=== PATIENT | male | born 1940 | race Caucasian/White ===

== ENCOUNTER 2018-09-23 15:17 | Inpatient (IN) ==
[2018-09-23 16:01] LABS: BASO# 0.06 X1000 (0.0-0.2); BASO% 0.8 % (0.0-0.8); HEMATOCRIT 39.8 % (42.0-52.0); HEMOGLOBIN 13.3 g/dL (14.0-18.0); IMM GRAN# 0.06 X1000 (0.0-0.04); IMM GRAN% 0.8 % (0.0-0.5); LYMPH# 2.17 X1000 (1.2-3.4); LYMPH% 27.2 % (20.5-51.1); MCH 31.1 PG (27-31); MCHC 33.4 g/dL (33-37); MONO# 0.68 X1000 (0.11-0.59); MONO% 8.5 % (1.7-9.3); NEUT# 4.61 X1000 (1.4-6.5); NEUT% 57.7 % (42.2-75.2); RBC 4.28 XMIL (4.7-6.1); RDW 13.2 % (11.5-14.5); WBC 7.98 X1000 (4.8-10.8)
[2018-09-23 16:03] LABS: PLT < 6 X1000 (130-400)
[2018-09-23 16:11] LABS: INR 0.94; PROTIME 13.3 Seconds (11.0-16.0)
[2018-09-23 16:14] LABS: URINE SOURCE CLEAN CATCH
[2018-09-23 16:15] LABS: EOS 4 % (1-10); LYMPHS 33 % (21-51); MONO 3 % (1-9); SEGS 60 % (42-75)
[2018-09-23 16:17] LABS: AGAP 11; ALB/GLOB RATIO 1.2; ALBUMIN 3.9 g/dL (3.5-5.0); ALKALINE PHOSPHATASE 111 U/L (32-122); BUN 22 mg/dL (8-22); CALCIUM 8.4 mg/dL (8.8-10.2); CHLORIDE 101 mmol/L (98-107); COSMO 286; ESTIMATED GFR > 60; GLUCOSE 162 mg/dL (70-104); GOT 25 U/L (10-34); GPT 15 U/L (10-44); POTASSIUM 3.9 mmol/L (3.5-5.1); SODIUM 140 mmol/L (136-145); TCO2 28 mmol/L (25-35); TOTAL BILIRUBIN 1.08 mg/dL (0.20-1.00); TOTAL PROTEIN 7.1 g/dL (6.3-8.3)
[2018-09-23 16:22] LABS: UR EPITHELIAL CELLS <10 /HPF (<10); URINE BACTERIA NEGATIVE /HPF; URINE WBC <10 /HPF (<10)
[2018-09-23 16:23] LABS: BILIRUBIN URINE NEGATIVE (NEGATIVE); BLOOD URINE MODERATE (NEGATIVE); COLOR YELLOW; GLUCOSE URINE NEGATIVE (NEGATIVE); KETONE URINE NEGATIVE (NEGATIVE); LEUKOCYTES URINE NEGATIVE (NEGATIVE); NITRITE URINE NEGATIVE (NEGATIVE); PROTEIN URINE NEGATIVE (NEGATIVE); TURBIDITY URINE CLEAR (CLEAR); UROBILINOGEN URINE NORMAL (NORMAL)
--- NOTE | 2018-09-23 16:25 | EKG Report ---
Test Performed on : 09/23/2018 4:20:24 PM Test Reason : dyspnea Blood Pressure : / mmHG Vent. Rate : 072 BPM Atrial Rate : 072 BPM P-R Int : 328 ms QRS Dur : 150 ms QT Int : 466 ms P-R-T Axes : 253 007 234 degrees QTc Int : 510 ms Unusual P axis, possible ectopic atrial rhythm. Right bundle branch block Inferior infarct , age undetermined T wave abnormality, consider lateral ischemia Abnormal ECG When compared with ECG of 18-JAN-2016 09:18, Ectopic atrial rhythm. has replaced Wide QRS rhythm. Unconfirmed Result
--- NOTE | 2018-09-23 16:46 | PROVIDER DOCUMENTATION ---
This chart was entered by Afsaneh Morales Scribe, acting as scribe for Sugar Mosquera MD. HPI-Abdominal Pain/GI Problem - General Chief Complaint: Abnormal Lab[s] Stated Complaint: NUNU REF Time Seen by Provider: 09/23/18 15:32 Source: patient Allergies/Adverse Reactions: Patient Allergies Allergy/AdvReac Type Severity Reaction Status Date / Time No Known Allergies Allergy Verified 01/18/16 09:08 Home Medications: Home Medication List Medication Instructions Recorded Confirmed Last Taken Type Aspirin [Aspirin EC] 81 mg PO DAILY 02/17/14 05/25/16 05/25/16 History 0800 Digoxin [Digox] 125 mcg PO DAILY 02/17/14 05/25/16 05/25/16 History 0800 Isosorbide Mononitrate E.r. [Imdur] 30 mg PO DAILY #0 tablet 02/17/14 05/25/16 Unknown Rx Simvastatin 40 mg PO QHS 02/17/14 05/25/16 02/16/14 21:00 History Sotalol HCl [Betapace] 160 mg PO BID 02/17/14 05/25/16 05/25/16 History 0800 Meclizine HCl [Antivert] 12.5 mg PO TID PRN PRN #30 tablet 01/18/16 05/25/16 Unknown Rx Furosemide [Lasix] 40 mg PO DAILY 05/25/16 05/25/16 05/25/16 08:00 History Hydrocodone/APAP 5 mg/325 mg 1 tab PO Q6H PRN PRN #12 tablet 05/25/16 Unknown Rx [[place]-5] Insulin Aspart Prot/Insuln Asp 110 units SQ AC + HS 05/25/16 05/25/16 05/25/16 History [Novolog Mix 70-30 Vial] 0800 Insulin Regular, Human [Humulin R 05/25/16 Unknown History U-500] - History of Present Illness-ABD Nature of Presenting Problems: Patient is 78 year old male who presents to the ED with bleeding gums, nose bleeds and dark stools. Patient states symptoms started last week. Patient states seeing PCP 5 days ago and was informed his platelets were 5000. Patient states was seen again by PCP yesterday. Patient does not report taking a blood thinner. Patient denies pain and fever. Abdominal Pain Onset Location: reports: other (no abdominal pain) Pain Radiation: reports: no radiation Quality of Pain: reports: none Severity in ED: reports: mild Onset/Duration: reports: last week Timing: reports: still present Activities at Onset: reports: light activity Modifying Factors: improves with: nothing Associated Symptoms: reports: EENT symptoms (nose bleed and bleeding gums), other (GI bleed) Last BM: unsure Dark Stools Present?: reports: black Rectal Pain: reports: none Emesis Description: reports: none Bruising or Bleeding Gums?: Yes Similar Symptoms Previously?: Yes Recently seen or treated by another doctor?: Yes Review of Systems - Adult - REVIEW OF SYSTEMS - ADULT Constitutional: reports: no symptoms reported Eyes: reports: no symptoms reported Ears, Nose, Mouth & Throat: reports: epistaxis, other (bleeding gums). denies: ear pain, throat pain Cardiovascular: reports: no symptoms reported Respiratory: reports: no symptoms reported Gastrointestinal: reports: other (black stools). denies: abdominal pain, diarrhea, nausea, vomiting Genitourinary: reports: no symptoms reported Musculoskeletal: reports: no symptoms reported Integumentary: reports: no symptoms reported Neurological: reports: no symptoms reported Psychiatric: reports: no symptoms reported Endocrine: reports: no symptoms reported Hematologic/Lymphatic: reports: no symptoms reported Allergic/Immunologic: reports: no symptoms reported All Other Systems: Reviewed and Negative Past History - Adult - PAST MEDICAL HISTORY-ADULT Review of Records: reports: Nursing Assessment Review, Medications Reviewed, Social history reviewed & non-contributory. Major Childhood Illnesses: reports: denies history Cardiovascular: reports: CHF, HTN, hyperlipidemia, other (cardiomegally) Respiratory: reports: denies history Gastrointestinal: reports: denies history Obstetrical/Gynecological: reports: denies history Genitourinary: reports: dialysis Musculoskeletal: reports: denies history Neurological: reports: denies history Endocrine/Immune: reports: Diabetes Other Conditions: reports: denies history - PRIOR SURGERIES/PROCEDURES Surgical/Procedure History: reports: appendectomy, CABG, back/neck (neck), other (open heart surgery 2002) - IMMUNIZATION STATUS Childhood Immunizations: See Nurse Assessment Flu Vaccine: See Nurse Assessment - FAMILY HISTORY Family History: reviewed, not pertinent - SOCIAL HISTORY Smoking: cigarettes (former) Substance Use: denies Physical Exam-General - PHYSICAL EXAM-ADULT Initial Vital Signs Reviewed: Yes - CONSTITUTIONAL General Appearance: appears well, alert, no apparent distress - EYES Eyes: pink conjunctivae - HEAD, EARS, NOSE, MOUTH & THROAT HENMT: moist mucous membranes, other (dried blood both nares, dried blood at inner lips) - NECK Neck: non-tender, supple - RESPIRATORY Respiratory: lungs clear, normal breath sounds, no pleuratic chest pain, no respiratory distress - CARDIOVASCULAR Cardiovascular: normal peripheral pulses, regular rate, rhythm - GASTROINTESTINAL (ABDOMEN) Abdominal Exam: non tender, soft - LYMPHATIC Lymphatic: no adenopathy - MUSCULOSKELETAL Extremity: normal range of motion, non-tender Peripheral Pulses: radial (R): 2+, radial (L): 2+ - SKIN Integumentary: normal turgor, warm/dry, other (distal BLE evidence of aged blood - 'broken capillary', sites of insulin injection profound bruising and evidence of bleeding) - NEUROLOGIC Neurologic: grossly normal, no motor/sensory deficits - PSYCHIATRIC Psych/Mental Status: normal mood/affect, normal thought content, normal thought process, oriented x 3 Progress - PLAN OF CARE/RESULTS Progress/Plan/Lab Results: Vital Signs - 8 hr 09/23/18 15:31 Temperature 98.4 F Pulse Rate 71 Respiratory Rate 18 Blood Pressure 142/63 O2 Sat by Pulse Oximetry 95 Laboratory Results - last 24 hr 09/23/18 15:30 WBC 7.98 RBC 4.28 L Hgb 13.3 L Hct 39.8 L MCV 93.0 MCH 31.1 H MCHC 33.4 RDW Std Deviation 13.2 Plt Count < 6 L* MPV Not Reportable Immature Gran % (Auto) 0.8 H Neut % (Auto) 57.7 Lymph % (Auto) 27.2 [place] % (Auto) 8.5 Eos % (Auto) 5.0 Baso % (Auto) 0.8 Immature Gran # (Auto) 0.06 H Neut # (Auto) 4.61 Lymph # (Auto) 2.17 [place] # (Auto) 0.68 H Eos # (Auto) 0.40 Baso # (Auto) 0.06 Orders Category Date Time Status Saline Loc NOW Care 09/23/18 15:57 Active CBC WITH ELECTRONIC DIFF [HEME] Stat Lab 09/23/18 15:30 Results COMPREHENSIVE METABOLIC PANEL [CHEM] Stat Lab 09/23/18 15:30 Received PROTIME WITH INR [COAG] Stat Lab 09/23/18 15:30 Received PTT [COAG] Stat Lab 09/23/18 15:30 Received TYPE & SCREEN [BBK] Stat Lab 09/23/18 15:30 Received URINALYSIS [URINALYSIS] Stat Lab 09/23/18 15:37 Uncollected Generalized Adult Illness >60 Stat Oth 09/23/18 15:36 Ordered EKG [EKG] Stat Ther 09/23/18 15:57 Ordered d/w Ross[facility] 1403 HPI PCP sent over labs from yesterday exam admission, to [facility] Result Diagrams: 09/23/18 15:30 09/23/18 15:30 Departure - Departure Date of Disposition Decision: 09/23/18 Time of Disposition Decision: 16:04 DIAGNOSIS: Thrombocytopenia Disposition: ADMITTED INPATIENT 09 Certified Medical Emergency: Emergent Condition: Good Referrals and Follow-Ups: Robert Cain MD [Primary Care Provider] - - Critical Care Note This patient required my direct & personal management of CC.: No Attestation - Physician/ IRAIDA Attestation The physician spent face to face time with patient:: Yes Advanced Practice Provider documentation review:: Supervising physician onsite and consulted in the evaluation and care of this patient. The physician did have a face to face encounter with the patient. This chart was documented by the indicated scribe, (Afsaneh Morales Scribe) and accurately reflects the services I performed and decisions made by me, Sugar Mosquera MD, as attested by the provider's signature.
--- NOTE | 2018-09-23 17:13 | ED EKG INTERP ---
This chart was entered by Afsaneh Morales Scribe, acting as scribe for Sugar Mosquera MD. EKG Interpretation - EKG Time of EKG reading by physician:: 16:20 EKG Read and Signed by:: Sugar Mosquera EKG Interpretation (*Must complete 3 of following elements*): Abnormal (T wave abnormality, consider lateral ischemia) Rate: 72 Rhythm: unusual P axis, possible actopic atrial rhythm QRS: RBB Comments: inferior infarct, age undetermined; Attestation - Physician/ IRAIDA Attestation The physician spent face to face time with patient:: Yes Advanced Practice Provider documentation review:: Supervising physician onsite and consulted in the evaluation and care of this patient. The physician did have a face to face encounter with the patient. This chart was documented by the indicated scribe, (Afsaneh Morales Scribe) and accurately reflects the services I performed and decisions made by me, Sugar Mosquera MD, as attested by the provider's signature.
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
[2018-09-23] MEDS ORDERED: ZOFRAN IV PRN (17:25)
[2018-09-23 18:10] LABS: RETIC% 1.7 % (0.8-2.1); RETIC-HE 34.2 PG (28.2-36.6)
[2018-09-23 18:39] LABS: FREE T4 1.23 ng/dL (0.93-1.70)
[2018-09-23 22:39] LABS: MPV 9.7 FL (7.4-10.4)
[2018-09-23] MEDS: HUMALOG SUBQ SCH (23:02)
[2018-09-24] MEDS: HUMALOG SUBQ SCH ×4 (06:32→21:47)
[2018-09-24 07:45] LABS: BASO# 0.04 X1000 (0.0-0.2); BASO% 0.5 % (0.0-0.8); EOS# 0.35 X1000 (0.0-0.7); EOS% 4.8 % (0.0-10.0); HEMATOCRIT 37.1 % (42.0-52.0); IMM GRAN# 0.03 X1000 (0.0-0.04); IMM GRAN% 0.4 % (0.0-0.5); LYMPH% 27.2 % (20.5-51.1); MCH 30.3 PG (27-31); MCHC 32.3 g/dL (33-37); MCV 93.7 FL (81-99); MONO# 0.62 X1000 (0.11-0.59); MONO% 8.4 % (1.7-9.3); NEUT# 4.32 X1000 (1.4-6.5); NEUT% 58.7 % (42.2-75.2); PLT 6 X1000 (130-400); RBC 3.96 XMIL (4.7-6.1); RDW 13.1 % (11.5-14.5); WBC 7.36 X1000 (4.8-10.8)
[2018-09-24 07:47] LABS: HEMOGLOBIN A1C 8.4 % (4.8-6.0)
[2018-09-24 07:57] LABS: AGAP 10; ALB/GLOB RATIO 1.3; ALBUMIN 3.6 g/dL (3.5-5.0); ALKALINE PHOSPHATASE 91 U/L (32-122); BUN 19 mg/dL (8-22); CALCIUM 9.1 mg/dL (8.8-10.2); CHLORIDE 99 mmol/L (98-107); COSMO 281; CREATININE 0.9 mg/dL (0.7-1.2); ESTIMATED GFR > 60; GLUCOSE 188 mg/dL (70-104); GOT 24 U/L (10-34); GPT 14 U/L (10-44); POTASSIUM 3.9 mmol/L (3.5-5.1); SODIUM 137 mmol/L (136-145); TCO2 28 mmol/L (25-35); TOTAL BILIRUBIN 1.28 mg/dL (0.20-1.00); TOTAL PROTEIN 6.4 g/dL (6.3-8.3)
[2018-09-24 08:30] LABS: EOS 4 % (1-10); LYMPHS 24 % (21-51); MONO 14 % (1-9); SEGS 58 % (42-75)
[2018-09-24] MEDS: BETAPACE PO SCH (12:00)
[2018-09-24] MEDS: DECADRON 40 MG in NS 50 ML IV SCH (12:53)
[2018-09-24] MEDS ORDERED: PROTONIX PO ONE (13:29)
--- NOTE | 2018-09-24 16:23 | PROGRESS NOTE ---
DATE: 09/24/2018 SUBJECTIVE: Mr. Dupont is feeling better, but his platelet counts an hour after we gave him a unit of pheres platelets was 20, and now this morning is back to 6. Studies confirm immuno thrombocytopenic purpura. So, we are going to start him on Decadron. Dr. Albright is following. He has had a little more bleeding from his nose. OBJECTIVE: Vital Signs: Temperature 98.1 degrees, pulse 75, respirations 17, blood pressure 137/57. Eyes: Pupils are equal and round. Lungs: Clear in all lung schuster. Cardiovascular exam: Regular rhythm and rate without murmur or S3. Abdomen: Soft. Skin: Warm and dry. Blood sugar 229, 298. His platelet count has come back down to 6. ASSESSMENT AND PLAN: 1. Idiopathic or immuno thrombocytopenic purpura. Got 1 unit of pheresed platelets and we have started on Decadron. See if we can get platelet counts up above. He is still having some bleeding, quite a bit of purpura and petechiae. 2. Diabetes mellitus type 2 on Decadron. His sugars are probably going to run high. We will put him on a sliding scale. 3. History of coronary artery disease. No sign of active ischemia. 4. Congestive heart failure appears well compensated. 5. History of atrial fibrillation, rate is controlled. 6. His medications: Getting Decadron 40 mg intravenous daily, Protonix 40 mg a day, Betapace 80 mg a day, Protonix 40 mg (he got 1 dose). cc: Km DeL eon MD
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
[2018-09-25] MEDS ORDERED: HUMALOG SUBQ ONE (00:49)
[2018-09-25] MEDS: PROTONIX PO SCH (06:45)
[2018-09-25] MEDS: HUMALOG SUBQ SCH ×5 (06:45→21:43)
--- NOTE | 2018-09-25 06:45 | ECHO REPORT ---
ORDER DATE: 09/24/2018 INDICATIONS: Bypass surgery, coronary heart disease, atrial fibrillation. M-MODE MEASUREMENTS: Left ventricle end diastole: 4.4 cm. Left ventricle end systole: 3.6 cm. Posterior wall: 0.3 cm. Interventricular septum: 1.5 cm. Left atrium: 3.5 cm. SUMMARY OF 2-DIMENSIONAL IMAGIN. The study is limited by poor acoustic windows. The parasternal views were better than the apical views. 2. The left ventricular systolic function is impaired in the order of 40%. I believe there is paradoxical motion of the interventricular septum, probably due to enlargement of the right ventricle. There is also significant impairment of contractility of the inferior wall. 3. The aortic valve looks normal. 4. The mitral valve looks grossly normal. Color flow mapping indicates mild degree of regurgitation. normal. 5. The tricuspid valve shows mild degree of regurgitation. 6. The pulmonary artery pressure is not optimally evaluated in this case. I suspect this is higher than the estimated 30 mmHg that we got. 7. The pulmonic valve looks grossly normal. 8. There is moderate degree of tricuspid regurgitation. 9. There is no pericardial effusion. 10.Right ventricle is enlarged. 11.The left atrium appears to be borderline enlarged. SUMMARY: In summary, this study shows: 1. Technically limited study due to poor apical acoustic windows. 2. Enlarged right ventricle with paradoxical motion of the interventricular septum. 3. Ejection fraction of left ventricle estimated at 40% with impairment of the inferior wall. 4. Unremarkable aortic valve. 5. Mild degree of mitral regurgitation. 6. Moderate tricuspid regurgitation. 7. Pulmonary artery pressure is suboptimally evaluated in this case. 8. The diastolic function appears to be "normal" with tissue Doppler of septum and mitral annulus averaging 13 cm. Clinical correlation recommended. cc: Ashok Hernandez MD MTDD
[2018-09-25 08:52] LABS: BASO# 0.01 X1000 (0.0-0.2); BASO% 0.1 % (0.0-0.8); EOS# 0.01 X1000 (0.0-0.7); EOS% 0.1 % (0.0-10.0); HEMATOCRIT 37.7 % (42.0-52.0); HEMOGLOBIN 12.5 g/dL (14.0-18.0); IMM GRAN# 0.03 X1000 (0.0-0.04); IMM GRAN% 0.2 % (0.0-0.5); LYMPH# 1.34 X1000 (1.2-3.4); LYMPH% 9.5 % (20.5-51.1); MCH 30.7 PG (27-31); MCHC 33.2 g/dL (33-37); MCV 92.6 FL (81-99); MONO# 0.26 X1000 (0.11-0.59); MONO% 1.8 % (1.7-9.3); NEUT# 12.51 X1000 (1.4-6.5); NEUT% 88.3 % (42.2-75.2); RBC 4.07 XMIL (4.7-6.1); WBC 14.16 X1000 (4.8-10.8)
[2018-09-25 08:53] LABS: PLT < 6 X1000 (130-400)
[2018-09-25 09:36] LABS: BANDS 7 % (0-1); LYMPHS 5 % (21-51); MONO 3 % (1-9); SEGS 85 % (42-75)
[2018-09-25] MEDS: BETAPACE PO SCH (09:52)
[2018-09-25] MEDS: DECADRON 40 MG in NS 50 ML IV SCH (09:52)
[2018-09-25] MEDS ORDERED: IVIG DOSING ORDER MISC SCH (12:15)
[2018-09-25] MEDS ORDERED: GAMUNEX-C 10% IV ONE (12:30)
--- NOTE | 2018-09-25 16:59 | PROGRESS NOTE ---
DATE: 09/25/2018 SUBJECTIVE: He states he is feeling good. His nose is still getting nosebleeds. OBJECTIVE: Vital signs: He remains afebrile. Temp 97.7 degrees, pulse 64, respirations 19, blood pressure 134/71. HEENT: Pupils are equal and round. Lungs: Clear in all lung schuster. Cardiovascular: Regular rhythm and rate without murmur or S3. Abdomen: Soft. Skin: Warm and dry. LABORATORY: Blood sugars 343, 407, 338. White count was a little elevated today at 14,160, hematocrit 37, platelet count is still less than 6,000. ASSESSMENT AND PLAN: 1. Thrombocytopenia secondary to idiopathic thrombocytopenic purpura. Has been on high-dose steroids with dexamethasone. Goal would be get platelet counts above 15,000, if not 20,000. I think I will start some IgG as well. 2. He is on gastrointestinal prophylaxis with a proton pump inhibitor. 3. Hyperglycemia with diabetes mellitus. Will continue sliding scale and I think I will start some 70/30 twice a day to try and bring sugars down. 4. History of coronary artery disease. Aware. cc: Km De Leon MD
[2018-09-25] MEDS: NOVOLOG MIX 70/30 SUBQ SCH (17:56)
[2018-09-26] MEDS: HUMALOG SUBQ SCH ×3 (06:30→16:37)
[2018-09-26] MEDS: PROTONIX PO SCH (06:36)
[2018-09-26] MEDS: NOVOLOG MIX 70/30 SUBQ SCH ×3 (08:30→16:37)
[2018-09-26 08:36] LABS: HEMATOCRIT 38.1 % (42.0-52.0); HEMOGLOBIN 12.4 g/dL (14.0-18.0); IMM GRAN# 0.06 X1000 (0.0-0.04); IMM GRAN% 0.4 % (0.0-0.5); LYMPH# 1.23 X1000 (1.2-3.4); LYMPH% 7.9 % (20.5-51.1); MCH 30.2 PG (27-31); MCHC 32.5 g/dL (33-37); MCV 92.9 FL (81-99); MONO# 0.64 X1000 (0.11-0.59); MONO% 4.1 % (1.7-9.3); NEUT# 13.69 X1000 (1.4-6.5); NEUT% 87.6 % (42.2-75.2); PLT 23 X1000 (130-400); RDW 13.5 % (11.5-14.5); WBC 15.62 X1000 (4.8-10.8)
[2018-09-26] MEDS ORDERED: INSULIN PEN NEEDLES ONE (08:36)
[2018-09-26 08:50] LABS: BANDS 4 % (0-1); LYMPHS 6 % (21-51); MONO 6 % (1-9); SEGS 84 % (42-75)
[2018-09-26] MEDS: DECADRON 40 MG in NS 50 ML IV SCH (10:53)
[2018-09-26] MEDS: BETAPACE PO SCH (10:53)
[2018-09-26] MEDS ORDERED: IVIG DOSING ORDER MISC SCH (12:30)
[2018-09-26] MEDS ORDERED: IMMUNE GLOBULIN IV ONE (12:30)
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
[2018-09-26 16:21] VITALS: BP 134/66
--- NOTE | 2018-09-26 19:36 | HEMO/ONC PROGRESS NOTE ---
DATE: 09/26/2018 SUBJECTIVE: Mr. Dupont is sitting in his hospital bed eating lunch. OBJECTIVE: Vital Signs: Temperature 97.8, heart rate 67, respirations 18, blood pressure 147/76, O2 saturation 99% on room air. LABS: White blood cells 15.65, hemoglobin 12.4, hematocrit 38.1, platelet count 23,000. PHYSICAL EXAMINATION: CV: S1, S2 heard. No murmurs, gallops, rubs appreciated. Respiratory: Chest is clear. Gastrointestinal: Abdomen is soft. Musculoskeletal: No bony abnormalities. Skin: Scattered petechiae noted. ASSESSMENT AND PLAN: 1. Idiopathic thrombocytopenia. Patient is status post 1 dose of IVIG yesterday at 400 mg/kg due to issues with supply and availability. Patient is scheduled to receive an additional dose of 400 mg/kg IVIG today. He has also received 4 doses of IV steroids. His platelet count has improved. The patient is anxious and would like to leave. He is going to be discharged. We recommend weekly CBCs x3 and to follow up with us in 4 weeks. 2. Coronary artery disease. Management has been by the primary team. Seems stable. 3. Diabetes mellitus type 2. Patient has been on sliding scale insulin. 4. Disposition. Again, after patient received his second dose of IVIG, he can be discharged if okay with the primary team and can follow up with us as an outpatient as per above. Dictated by FRAN Dee for Kelle Albright MD cc: Kelle Albright MD
== END 2018-09-26 19:58 | disposition home or self-care (01) | DRG 813 ==
LOC: ED 15:17 → EDIPHOLD 17:36 → 3N 21:48
PROVIDERS: ATTEND Emergency Medicine
CPT/HCPCS: 36430; 80053; 81001; 82607; 82746; 82948; 83036; 83735; 84439; 84443; 85025; 85045; 85049; 85610; 85730; 86022; 86850; 86900; 86901; 93005; 93306; 99285; A9270; J1561; J1568; J1815; P9035; XXXXX